=== PATIENT | male | born 1995 | race Caucasian/White ===

== ENCOUNTER 2020-12-16 22:02 | Emergency (ER) | payer MEDICAID ==
[~2020-12-16] VITALS: Ht 188 cm; Wt 99.8 kg
[2020-12-16 23:02] VITALS: BP 111/73
[2020-12-16] MEDS ORDERED: VANCOMYCIN 1 GM in IV D5W 250 ML IV ONE (23:30)
[2020-12-16] MEDS ORDERED: VANCOMYCIN 1 GM VIAL ONE (23:36)
[2020-12-16] MEDS ORDERED: CEPH500C2 PO (23:51)
[2020-12-16] MEDS ORDERED: SULF1TAB48 PO (23:51)
--- NOTE | 2020-12-16 23:57 | NUR ---
Patient does not wish to proceed with medical care recommended by Dr. CABRERA. Patient given information related to possible complications, up to and including , which could occur as a result of leaving the hospital at this time. Patient verbalizes understanding of risks involved due to leaving against medical advice. Patient has signed AMA form.
== END 2020-12-16 23:57 | disposition left against medical advice (07) ==
LOC: ER 22:08
DX: L03.114 Cellulitis of left upper limb (principal); F19.10 Other psychoactive substance abuse, uncomplicated; J45.909 Unspecified asthma, uncomplicated; F17.200 Nicotine dependence, unspecified, uncomplicated
CPT/HCPCS: 80048-TC; 80076-TC; 83605-TC; 84484-TC; 85025-TC; 87040-TC; 87086-TC; J3370